=== PATIENT | male | born 1975 | race Caucasian/White ===

== ENCOUNTER → 2019-07-19 20:02 | Outpatient (CLI) | payer OTHER, SELFPAY ==
[2019-05-22 13:32] VITALS: BMI 44.1
== END ==
LOC: SL 20:02
PROVIDERS: Family Provider Internal Medicine; PCP Internal Medicine; Referring Provider Internal Medicine; Visit Provider Internal Medicine
DX: G47.10 Hypersomnia, unspecified (principal)
CPT/HCPCS: 95810

== ENCOUNTER → 2019-09-23 12:40 | Outpatient (CLI) | payer OTHER, SELFPAY ==
[2019-08-02 13:06] VITALS: BMI 45.6
[2019-09-23 13:35] LABS: T4 Free Direct 0.92 ng/dL (0.76-1.46); Thyroid Stim Hormone (TSH) 1.69 uIU/mL (0.358-3.74)
== END ==
PROVIDERS: Family Provider Internal Medicine; PCP Internal Medicine; Referring Provider Internal Medicine; Visit Provider Internal Medicine
DX: Z13.29 Encounter for screening for other suspected endocrine disorder (principal)
CPT/HCPCS: 36415; 84439; 84443

== ENCOUNTER → 2019-10-22 12:13 | Outpatient (CLI) | payer OTHER, SELFPAY ==
[2019-09-24 14:32] VITALS: BMI 32.3
--- NOTE | 2019-10-22 12:18 | RAD_ITS ---
STUDY: X-RAY - LEFT KNEE REASON FOR EXAM: Male, 44 years old. Pain TECHNIQUE: 2 view(s) of the knee. COMPARISON: None. FINDINGS: There is no evidence of fracture or dislocation. Moderate tricompartmental osteoarthritic degenerative changes are present, greatest in the lateral compartment. A dense effusion is present. There are no radiodense foreign bodies. RAD/Knee 1 or 2 Views IMPRESSION: No fracture or dislocation. Moderate tricompartmental osteoarthritic degenerative changes, greatest in the lateral compartment. Dense effusion, possibly proteinaceous or hemorrhagic. Correlate clinically. Electronically Signed: Wood Blanton, at 17:04 EST Tel , Service support ,
--- NOTE | 2019-10-22 12:20 | RAD_ITS ---
STUDY: X-RAY - LEFT KNEE REASON FOR EXAM: Male, 44 years old. Pain TECHNIQUE: 2 view(s) of the knee. COMPARISON: None. FINDINGS: There is no evidence of fracture or dislocation. Moderate to prominent tricompartmental osteoarthritic degenerative changes are present, greatest in the lateral compartment. There are no radiodense foreign bodies. RAD/Knee 1 or 2 Views IMPRESSION: No fracture or dislocation. Moderate to prominent tricompartmental osteoarthritic degenerative changes, greatest in the lateral compartment. Electronically Signed: Wood Blanton, at 17:02 EST Tel , Service support ,
== END ==
LOC: RAD 12:15
PROVIDERS: Family Provider Internal Medicine; PCP Internal Medicine; Referring Provider Internal Medicine; Visit Provider Internal Medicine
DX: I10 Essential (primary) hypertension (principal); R00.0 Tachycardia, unspecified; M17.12 Unilateral primary osteoarthritis, left knee
CPT/HCPCS: 73560; 93005

== ENCOUNTER → 2019-12-30 13:00 | Outpatient (CLI) | payer OTHER, SELFPAY ==
[2019-11-22 15:01] VITALS: BMI 32.3
[2019-12-30 13:50] LABS: Absolute Lymphocyte Count 1.99 X10^3/uL (0.83-4.51); Absolute Neutrophil Count 4.8 X10^3/uL (2.0-7.7); Basophil# 0.03 X10^3/uL; Basophil% 0.4 % (0-1); Eosinophil# 0.02 X10^3/uL; Eosinophils% 0.3 % (0-5); Hematocrit 44.2 % (40-54); Hemoglobin 14.5 g/dL (13.0-16.5); Lymphocyte # 1.99 X10^3/ul (4.0); Lymphocyte % 27.4 % (19-41); Mean Corp Hgb Conc 32.8 g/dL (32-36); Mean Corpuscular Hgb 27.8 pg (27.0-32.0); Mean Corpuscular Volume 84.8 fL (80-94); Mean Platelet Vol. 11.4 fl (6.2-12.0); Monocyte# 0.41 X10^3/uL; Monocyte% 5.6 % (0-10); NRBC Flagged by Analyzer 0 % (0-5); Neutrophil # 4.78 X10^3/uL (2.7-7.7); Neutrophil % 65.9 % (47-70); Platelet Count 184 K/mm3 (150-450); RBC Distribution Width CV 12.8 % (11.6-14.6); RBC Distribution Width SD 38.9 fl (35.1-43.9); Red Blood Count 5.21 M/mm3 (4.6-6.2); White Blood Count 7.3 K/mm3 (4.4-11.0)
[2019-12-30 14:07] LABS: ALB/GLOB Ratio 0.8 RATIO (0.9-2.4); AST(SGOT) 25 U/L (15-37); Alanine Aminotransfer ALT/SGPT 46 U/L (16-61); Albumin, Serum 3.4 g/dL (3.2-5.0); Alkaline Phosphatase 74 U/L (45-117); Anion Gap 2 (5-15); BUN 16 mg/dL (7-18); Calcium,Total 9.6 mg/dL (8.5-10.1); Chloride 102 mmol/L (98-107); Cholesterol 161 mg/dL (200); Creatinine, Serum 0.94 mg/dL (0.70-1.30); EST Glomerular Filtration Rate 92 mL/min (>60); Est Glom Filt Rate - Afr Amer 111 mL/min (>60); Globulin 4.3 g/dL (2.2-4.2); Glucose 94 mg/dL (74-106); High Density Lipoprotein 43 mg/dL; Protein, Total 7.7 g/dL (6.4-8.2); Sodium Level 138 mmol/L (136-145); Triglycerides 136 mg/dL; Very Low Density Lipoprotein 27 mg/dL (5-40)
== END ==
PROVIDERS: PCP Internal Medicine; Referring Provider Internal Medicine; Visit Provider Internal Medicine
DX: I10 Essential (primary) hypertension (principal); G47.30 Sleep apnea, unspecified
CPT/HCPCS: 36415; 80053; 80061; 85025

== ENCOUNTER → 2020-08-21 17:27 | Outpatient (CLI) | payer OTHER, SELFPAY ==
[2020-08-21 09:21] VITALS: BMI 49.8
== END ==
PROVIDERS: PCP Internal Medicine; Referring Provider Nurse Practitioner Family; Visit Provider Nurse Practitioner Family
DX: R05 Cough (principal)
CPT/HCPCS: 87635; U0003

== ENCOUNTER → 2021-09-24 15:38 | Outpatient (CLI) | payer BC, SELFPAY ==
[2021-09-24 16:43] LABS: Hematocrit 44.8 % (40-54); Hemoglobin 14.4 g/dL (13.0-16.5); Mean Corp Hgb Conc 32.1 g/dL (32-36); Mean Corpuscular Hgb 27.9 pg (27.0-32.0); Mean Corpuscular Volume 86.7 fL (80-94); Mean Platelet Vol. 11.7 fl (6.2-12.0); Platelet Count 161 K/mm3 (150-450); RBC Distribution Width CV 13.4 % (11.6-14.6); RBC Distribution Width SD 42.1 fl (35.1-43.9); Red Blood Count 5.17 M/mm3 (4.6-6.2); White Blood Count 7.7 K/mm3 (4.4-11.0)
[2021-09-24 17:07] LABS: ALB/GLOB Ratio 0.6 RATIO (0.9-2.4); AST(SGOT) 45 U/L (15-37); Alanine Aminotransfer ALT/SGPT 54 U/L (16-61); Albumin, Serum 3.2 g/dL (3.2-5.0); Alkaline Phosphatase 124 U/L (45-117); Anion Gap 3 (5-15); BUN 9 mg/dL (7-18); BUN/Creat Ratio 9.6 RATIO (10-20); Calcium,Total 9.6 mg/dL (8.5-10.1); Chloride 100 mmol/L (98-107); Cholesterol 165 mg/dL (200); Creatinine, Serum 0.93 mg/dL (0.70-1.30); EST Glomerular Filtration Rate 93 mL/min (>60); Est Glom Filt Rate - Afr Amer 112 mL/min (>60); Globulin 5.1 g/dL (2.2-4.2); Glucose 129 mg/dL (74-106); High Density Lipoprotein 37 mg/dL; Potassium 4.4 mmol/L (3.5-5.1); Protein, Total 8.3 g/dL (6.4-8.2); Sodium Level 137 mmol/L (136-145); Thyroid Stim Hormone (TSH) 2.42 uIU/mL (0.358-3.74); Triglycerides 136 mg/dL; Very Low Density Lipoprotein 27 mg/dL (5-40)
== END ==
LOC: BIMLAB 15:39
PROVIDERS: PCP Internal Medicine; Referring Provider Nurse Practitioner Family; Visit Provider Nurse Practitioner Family
DX: I10 Essential (primary) hypertension (principal); E78.00 Pure hypercholesterolemia, unspecified
CPT/HCPCS: 36415; 80053; 80061; 84443; 85027

== ENCOUNTER → 2022-09-15 | Outpatient (CLI) | payer BC, SELFPAY ==
[2022-09-15 12:35] LABS: Absolute Lymphocyte Count 1.35 X10^3/uL (0.83-4.51); Absolute Neutrophil Count 3.4 X10^3/uL (2.0-7.7); Basophil# 0.03 X10^3/uL; Basophil% 0.6 % (0-1); Eosinophil# 0.04 X10^3/uL; Eosinophils% 0.8 % (0-5); Hematocrit 40.4 % (40-54); Hemoglobin 13.7 g/dL (13.0-16.5); Lymphocyte # 1.35 X10^3/ul (0.83-4.51); Lymphocyte % 26.5 % (19-41); Mean Corp Hgb Conc 33.9 g/dL (32-36); Mean Corpuscular Hgb 29.5 pg (27.0-32.0); Mean Corpuscular Volume 86.9 fL (80-94); Mean Platelet Vol. 12.3 fl (6.2-12.0); Monocyte# 0.27 X10^3/uL; Monocyte% 5.3 % (0-10); NRBC Flagged by Analyzer 0 % (0-5); Neutrophil # 3.39 X10^3/uL (2.7-7.7); Neutrophil % 66.4 % (47-70); POSITIVE COUNT YES; Platelet Count 95 K/mm3 (150-450); RBC Distribution Width CV 13.9 % (11.6-14.6); Red Blood Count 4.65 M/mm3 (4.6-6.2); White Blood Count 5.1 K/mm3 (4.4-11.0)
[2022-09-15 12:42] LABS: Differential Indicated SCAN CRITERIA MET
[2022-09-15 13:04] LABS: Platelet Estimate SLT DEC (ADEQ)
[2022-09-15 13:10] LABS: ALB/GLOB Ratio 0.8 RATIO (0.9-2.4); AST(SGOT) 30 U/L (15-37); Alanine Aminotransfer ALT/SGPT 31 U/L (16-61); Albumin, Serum 3.4 g/dL (3.2-5.0); Alkaline Phosphatase 86 U/L (45-117); Anion Gap 6 (5-15); BUN 9 mg/dL (7-18); BUN/Creat Ratio 11.2 RATIO (10-20); Calcium,Total 9.5 mg/dL (8.5-10.1); Chloride 105 mmol/L (98-107); Cholesterol 140 mg/dL (200); EST Glomerular Filtration Rate 110 mL/min (>60); Est Glom Filt Rate - Afr Amer 133 mL/min (>60); Globulin 4.2 g/dL (2.2-4.2); Glucose 109 mg/dL (74-106); High Density Lipoprotein 44 mg/dL; Potassium 3.9 mmol/L (3.5-5.1); Protein, Total 7.6 g/dL (6.4-8.2); Sodium Level 141 mmol/L (136-145); Thyroid Stim Hormone (TSH) 1.81 uIU/mL (0.358-3.74); Triglycerides 76 mg/dL; Very Low Density Lipoprotein 15 mg/dL (5-40)
[2022-09-15 13:20] LABS: Microalbumin,Random Urine 9.2 mg/L (NO RANGE EST.); Microalbumin:Creatinine Ratio 4.5 mg/g CRE (<30 mg/g CRE)
== END | disposition home or self-care (01) ==
LOC: BIMLAB 10:29
PROVIDERS: PCP Internal Medicine; Referring Provider Nurse Practitioner Family; Visit Provider Nurse Practitioner Family
DX: Z00.00 Encounter for general adult medical examination without abnormal findings (principal); E11.9 Type 2 diabetes mellitus without complications; I10 Essential (primary) hypertension
CPT/HCPCS: 36415; 80053; 80061; 82043; 82570; 84443; 85025

== ENCOUNTER → 2023-03-21 | Outpatient (CLI) | payer OTHER, SELFPAY ==
[2023-03-21 15:44] LABS: Hematocrit 45.9 % (40-54); Hemoglobin 15.1 g/dL (13.0-16.5); Mean Corp Hgb Conc 32.9 g/dL (32-36); Mean Corpuscular Hgb 28.9 pg (27.0-32.0); Mean Corpuscular Volume 87.8 fL (80-94); Mean Platelet Vol. 12.5 fl (6.2-12.0); Platelet Count 143 K/mm3 (150-450); RBC Distribution Width CV 13.4 % (11.6-14.6); RBC Distribution Width SD 42.9 fl (35.1-43.9); Red Blood Count 5.23 M/mm3 (4.6-6.2); White Blood Count 7.6 K/mm3 (4.4-11.0)
== END | disposition home or self-care (01) ==
PROVIDERS: PCP Internal Medicine; Visit Provider Nurse Practitioner Family
DX: D69.6 Thrombocytopenia, unspecified (principal)
CPT/HCPCS: 36415; 85027

== ENCOUNTER → 2023-12-29 | Outpatient (CLI) | payer OTHER, SELFPAY ==
[2023-12-29 09:42] LABS: Absolute Lymphocyte Count 1.79 X10^3/uL (0.83-4.51); Absolute Neutrophil Count 5.7 X10^3/uL (2.0-7.7); Basophil# 0.03 X10^3/uL; Basophil% 0.4 % (0-1); Eosinophil# 0.03 X10^3/uL; Eosinophils% 0.4 % (0-5); Hematocrit 47.3 % (40-54); Hemoglobin 15.6 g/dL (13.0-16.5); Lymphocyte # 1.79 X10^3/ul (0.83-4.51); Lymphocyte % 22.5 % (19-41); Mean Corpuscular Hgb 28.4 pg (27.0-32.0); Mean Corpuscular Volume 86.2 fL (80-94); Mean Platelet Vol. 11.8 fl (6.2-12.0); Monocyte# 0.42 X10^3/uL; Monocyte% 5.3 % (0-10); NRBC Flagged by Analyzer 0 % (0-5); Neutrophil # 5.66 X10^3/uL (2.7-7.7); Neutrophil % 70.9 % (47-70); Platelet Count 149 K/mm3 (150-450); RBC Distribution Width CV 13.4 % (11.6-14.6); RBC Distribution Width SD 42.3 fl (35.1-43.9); Red Blood Count 5.49 M/mm3 (4.6-6.2)
[2023-12-29 10:17] LABS: ALB/GLOB Ratio 0.7 RATIO (0.9-2.4); AST(SGOT) 31 U/L (15-37); Alanine Aminotransfer ALT/SGPT 51 U/L (16-61); Albumin, Serum 3.5 g/dL (3.2-5.0); Alkaline Phosphatase 101 U/L (45-117); Anion Gap 5 (5-15); BUN 13 mg/dL (7-18); BUN/Creat Ratio 14.4 RATIO (10-20); Calcium,Total 9.5 mg/dL (8.5-10.1); Chloride 105 mmol/L (98-107); Cholesterol 177 mg/dL (200); EST Glomerular Filtration Rate 96 mL/min (>60); Est Glom Filt Rate - Afr Amer 116 mL/min (>60); Globulin 4.7 g/dL (2.2-4.2); Glucose 211 mg/dL (74-106); High Density Lipoprotein 42 mg/dL; Potassium 4.1 mmol/L (3.5-5.1); Protein, Total 8.2 g/dL (6.4-8.2); Sodium Level 137 mmol/L (136-145); Triglycerides 118 mg/dL; Very Low Density Lipoprotein 24 mg/dL (5-40)
== END | disposition home or self-care (01) ==
PROVIDERS: PCP Internal Medicine; Visit Provider Internal Medicine
DX: I10 Essential (primary) hypertension (principal)
CPT/HCPCS: 36415; 80053; 80061; 85025

== ENCOUNTER → 2024-06-27 | Outpatient (CLI) | payer OTHER, SELFPAY ==
[2024-06-27 15:26] LABS: Microalbumin,Random Urine 14.7 mg/L (NO RANGE EST.); Microalbumin:Creatinine Ratio 6.6 mg/g CRE (<30 mg/g CRE)
[2024-06-27 16:10] LABS: Anion Gap 4 (5-15); BUN 14 mg/dL (7-18); BUN/Creat Ratio 14.7 RATIO (10-20); Chloride 102 mmol/L (98-107); Creatinine, Serum 0.96 mg/dL (0.70-1.30); EST Glomerular Filtration Rate 89 mL/min (>60); Est Glom Filt Rate - Afr Amer 108 mL/min (>60); Glucose 102 mg/dL (74-106); Potassium 4.9 mmol/L (3.5-5.1); Sodium Level 137 mmol/L (136-145)
== END | disposition home or self-care (01) ==
LOC: BIMLAB 13:09
PROVIDERS: PCP Internal Medicine; Referring Provider Internal Medicine; Visit Provider Internal Medicine
DX: E11.9 Type 2 diabetes mellitus without complications (principal)
CPT/HCPCS: 36415; 80048; 82043; 82570

== ENCOUNTER 2024-12-05 08:02 | Day surgery (SDC) | payer OTHER, SELFPAY ==
[2024-12-05] VITALS (7 sets, daily range): BP systolic 105–140; BP diastolic 62–80; PULSE 70–77; RESP 16–18; TEMP 36.3–36.6; O2SAT 94–96; BMI 44.7
--- NOTE | 2024-12-05 08:34 | PRE.ANES_ITS ---
ASA Classification* ASA Classification ASA Classification: 3 Assessment & Plan Anesthesia* Anesthesia Assessment Anesthesia Assessment: Discussed sedation and/or anesthesia options, risks, benefits, and alternatives with patient/parents/legal guardian/POA. Questions invited. The patient/parents/legal guardian/POA seems to understand and agrees to proceed with anesthesia plan. Reviewed the physical assessment, medical history, allergy history and patient home medications list prior to surgery/procedure/anesthetic and documented any changes. Performed airway and anesthesia risk assessments. Anesthesia Type Anesthesia Type: MAC History Source History Obtained from:: Patient and Chart Anesthesia Focused Assessment* Temperature: 97.8 F Pulse Rate: 76 Blood Pressure: 140/62 Respiratory Rate: 18 Pulse Ox: 96 Oxygen Delivery Method: Room Air Airway Assessment Mouth opens: 2 cm Mallampati Score: III Teeth Condition: Caps/Crowns (Patient has a crown top right molar. It is tight.) Neck Range of motion (ROM): Limited ROM (Somewhat decreased extension) Focused Labs Anesthesia Preop lab: CBC WBC 8.0 K/mm3 (4.4-11.0) 12/29/23 09:17 12/29/23 RBC 5.49 M/mm3 (4.6-6.2) 12/29/23 09:17 12/29/23 Hgb 15.6 g/dL (13.0-16.5) 12/29/23 09:17 12/29/23 Hct 47.3 % (40-54) 12/29/23 09:17 12/29/23 Plt Count 149 K/mm3 (150-450) L 12/29/23 09:17 12/29/23 CHEMISTRY Potassium 4.9 mmol/L (3.5-5.1) 06/27/24 13:09 06/27/24 Sodium 137 mmol/L (136-145) 06/27/24 13:09 06/27/24 BUN 14 mg/dL (7-18) 06/27/24 13:09 06/27/24 Creatinine 0.96 mg/dL (0.70-1.30) 06/27/24 13:09 06/27/24 Glucose 102 mg/dL (74-106) 06/27/24 13:09 06/27/24 TSH 1.81 uIU/mL (0.358-3.74) 09/15/22 10:30 COAG Pre-Assessment Diagnosis/Proposed Procedure Planned Operative Procedure(s): COLONOSCOPY-OA Anesthesia History 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 When Was Last Pacemaker Check QUESTION #4 FULL TEXT: You/Your Family Experience fever (hyperthermia) with Anesthesia Last Oral Intake Last Oral intake: Last Oral Intake NPO since 05:45 12/05/24 08:26 Meds taken in AM with sips of No 12/05/24 08:26 water? Meds patient instructed to take am of surgery Any additional information?: Yes NPO since: 05:45 (Patient finished prep at 5:25 AM) PONV PONV - casting machine set up operator: PONV - casting machine set up operator Female No 12/03/24 14:42 HX of Motion Sickness No 12/03/24 14:42 HX of N/V After Surgery No 12/03/24 14:42 Non-Smoker Yes 12/03/24 14:42 Duration of Surgery greater No 12/03/24 14:42 than 60 minutes Number of Risk Factors 1 12/03/24 14:42 PONV Score Low Risk 12/03/24 14:42 Height & Weight Height & Weight: Anesthesia: Height & Weight Height 5 ft 11 in 12/05/24 08:26 Weight: 145.6 kg 12/05/24 08:26 Body Mass Index (BMI) 44.7 12/05/24 08:26 Respiratory Assessment Respiratory Assessment - casting machine set up operator: Respiratory Tract Infection Hx - casting machine set up operator Hx Respiratory Tract Infection No 12/03/24 14:42 Any additional information?: Yes Hx Respiratory Tract Infection: Yes (Patient has not had the flu this past couple weeks. Better for the past 3d) STOP Sleep Apnea STOP Sleep Apnea - casting machine set up operator: STOP Sleep Apnea - casting machine set up operator Hx Hypertension Yes: CONTROLLED ON MED 12/03/24 14:42 Hx Sleep Apnea No 12/03/24 14:42 CPAP BIPAP Do you snore loudly (louder Yes 12/03/24 14:42 than talking or can be heard Do you often feel tired/ No 12/03/24 14:42 fatigued/ sleepy during daytime? Has anyone observed you stop No 12/03/24 14:42 breathing during sleep? STOP Results Positive 12/03/24 14:42 QUESTION #5 FULL TEXT : Do you snore loudly (louder than talking or can be heard through closed doors)? Tobacco Use History Tobacco Use History - casting machine set up operator: Tobacco Use History - casting machine set up operator Tobacco Use Smoking Status Never smoker 12/03/24 14:42 Hx Tobacco Use No 12/03/24 14:42 Years Smoking Packs Smoked per Day Smoking Cessation Date was within the last 15 years Hx Smoking Cessation Date Hx Smoking Cessation Counseling Hematologic Medial History Hematologic Hx - casting machine set up operator: Hematologic Medical Hx - digital marketing analyst Hx of Blood Transfusion No 12/03/24 14:42 Hx of Transfusion in last 3 No 12/03/24 14:42 Months Date of Last Transfusion (if within last 3 months) Ever experience any problems No 12/03/24 14:42 with transfusion(s)? Specify any problems Hx of Preganancy in last 3 N/A 12/03/24 14:42 Months Nurse Filling Out Transfusion VCHRISTIN 12/03/24 14:42 & Questions: Date: 12/03/24 12/03/24 14:42 Time: 14:43 12/03/24 14:42 Patient unable to answer at this time (ie. confused, unrespo /Reproduction History /Reproductive History - casting machine set up operator: /Reproductive Hx- casting machine set up operator Hx Now Gestational Age (in weeks): EDC: Hx Hx Para Hx Section SAB [facility] Medical History Wears glasses Gastric reflux Non-smoker History of stress test Health care maintenance Anxiety and depression Low back pain Grief reaction with prolonged bereavement Colon cancer screening Low platelet count Onychomycosis Type 2 diabetes mellitus HTN (hypertension) Encounter for preventative adult health care examination GERD (gastroesophageal reflux disease) IBS (irritable bowel syndrome) High cholesterol High blood pressure Hearing problem Frequent headaches Bone fracture Back problem Arthritis Seasonal allergies Home Medications ?Medication ?Instructions ?Recorded ?Last Taken ?Type esomeprazole magnesium 40 mg 40 mg PO DAILY #90 caps 0 03/21/23 Unknown Rx capsule,delayed release losartan 50 mg-hydrochlorothiazide 1 tab PO DAILY #90 tabs 01/04/24 Unknown Rx 12.5 mg tablet buspirone 7.5 mg tablet 7.5 mg PO BID #60 tabs 10/21 Unknown Rx meloxicam 15 mg tablet 15 mg PO DAILY PRN pain #90 tabs 11/01/24 Unknown Rx tirzepatide 5 mg/0.5 mL 5 mg subcut QWEEK 12/03/24 0 11/24/24 History subcutaneous pen injector (Mounjaro) Allergy/AdvReac Type Severity Reaction Status Date / Time bacitracin (From Neosporin Allergy Mild Unknown Verified 12/05/24 08:25 ([id number])) neomycin (From Neosporin Allergy Mild Unknown Verified 12/05/24 08:25 ([id number])) polymyxin B (From Neosporin Allergy Mild Unknown Verified 12/05/24 08:25 ([id number])) Family History Grandfather Alcohol abuse Hypertension Grandmother Diabetes Hypertension Father Skin cancer CVA (cerebral vascular accident) Hypertension Colon polyps Mother Hypertension Grandfather Alcohol abuse High cholesterol Surgical History Hx of hand surgery Social History household members: other details: current occupational status: employed Smoking Status: Never smoker alcohol intake: current alcohol intake frequency: holidays/special occasions only substance use type: does not use what type of physical activity do you participate in: none Review of Systems (Anesthesia) ROS Narrative System reviewed and no additional complaints, except as documented.
--- NOTE | 2024-12-05 08:40 | HP.PCM_ITS ---
[facility] - General General Date of Admission: 12/05/24 Date of Service: 12/05/24 Chief Complaint: Screening colonoscopy HPI Narrative PETRA MCDONOUGH, is a 49 M who presents today for screening colonoscopy. He has never had a colonoscopy in the past. He is not have any abdominal pain, cramping, chest pain or shortness of breath. He does have type 2 diabetes which is controlled with medications. [facility] Medical History Wears glasses Gastric reflux Non-smoker History of stress test Health care maintenance Anxiety and depression Low back pain Grief reaction with prolonged bereavement Colon cancer screening Low platelet count Onychomycosis Type 2 diabetes mellitus HTN (hypertension) Encounter for preventative adult health care examination GERD (gastroesophageal reflux disease) IBS (irritable bowel syndrome) High cholesterol High blood pressure Hearing problem Frequent headaches Bone fracture Back problem Arthritis Seasonal allergies Home Medications ?Medication ?Instructions ?Recorded ?Last Taken ?Type esomeprazole magnesium 40 mg 40 mg PO DAILY #90 caps 0 03/21/23 Unknown Rx capsule,delayed release losartan 50 mg-hydrochlorothiazide 1 tab PO DAILY #90 tabs 01/04/24 Unknown Rx 12.5 mg tablet buspirone 7.5 mg tablet 7.5 mg PO BID #60 tabs 10/21 Unknown Rx meloxicam 15 mg tablet 15 mg PO DAILY PRN pain #90 tabs 11/01/24 Unknown Rx tirzepatide 5 mg/0.5 mL 5 mg subcut QWEEK 12/03/24 0 11/24/24 History subcutaneous pen injector (Mounjaro) Allergy/AdvReac Type Severity Reaction Status Date / Time bacitracin (From Neosporin Allergy Mild Unknown Verified 12/05/24 08:25 ([id number])) neomycin (From Neosporin Allergy Mild Unknown Verified 12/05/24 08:25 ([id number])) polymyxin B (From Neosporin Allergy Mild Unknown Verified 12/05/24 08:25 ([id number])) Family History Grandfather Alcohol abuse Hypertension Grandmother Diabetes Hypertension Father Skin cancer CVA (cerebral vascular accident) Hypertension Colon polyps Mother Hypertension Grandfather Alcohol abuse High cholesterol Surgical History Hx of hand surgery Social History household members: other details: current occupational status: employed Smoking Status: Never smoker alcohol intake: current alcohol intake frequency: holidays/special occasions only substance use type: does not use what type of physical activity do you participate in: none ROS Constitutional Constitutional: Denies fatigue, fever(s), poor appetite, weight gain or weight loss Gastrointestinal Gastrointestinal: Denies belching, bloating, change in bowel habits, change in stool character, chewing difficulty, coffee ground emesis, constipation, cramping, diarrhea, dyspepsia, dysphagia, early satiety, excessive flatus, fecal incontinence, heartburn, hematemesis, hematochezia, hemorrhoids, loose stools, melena, nausea, odynophagia, rectal bleeding, tenesmus, vomiting or weight changes Vital Signs Vital Signs Vital Signs: 12/05/24 08:26 12/05/24 08:26 Temperature 97.8 F Temperature Source Temporal Pulse Rate 76 Respiratory Rate 18 Respiratory Pattern Normal Blood Pressure 140/62 H Blood Pressure Mean 88 Blood Pressure Source Monitor Blood Pressure Position Sitting Blood Pressure Location Left Arm Pulse Ox 96 Oxygen Delivery Method Room Air Weight Weight: 320 lb 15.889 oz Body Mass Index (BMI) 44.7 Physical Exam Const alert, oriented x3, no apparent distress and healthy appearing General Appearance: cooperative GI normal to inspection, nondistended, normoactive bowel sounds, soft to palpation, non-tender and non-distended Percussion: normal to percussion Rectal Exam: deferred Assessment & Plan Assessment/Plan (1) Colon cancer screening: PLAN: He will undergo screening colonoscopy. He was explained alternatives, risk, benefits include not withstanding bleeding, infection, sepsis, perforation, need for emergency or urgent . He will have an ASA of 3.
--- NOTE | 2024-12-05 09:15 | PCM.POST.ANE ---
Anesthesia: Postop Eval I Current Vital Signs Temperature: 97.4 F Pulse Rate: 77 Blood Pressure: 105/76 Respiratory Rate: 16 Pulse Ox: 96 Oxygen Delivery Method: Room Air Assessment Airway patent: Yes Spontaneous unlabored respirations: Yes Mental status: Awake and Calm nausea: No Vomiting: No Anesthesia Complication: No Fluid Hydration Crystalloid volume administer (ml): 40 Total IV fluid infused: 40 Progress Note Anesthesia document: Postop Eval 1 completed: Yes
--- NOTE | 2024-12-05 09:16 | OP.COLON_ITS ---
Patient Name: Wood Velazquez Procedure Date: 12/05/2024 8:42 AM Date of : 1975 Age: 49 Procedure: Colonoscopy Indications: Screening for colorectal malignant neoplasm Providers: Singh Webster DO Medicines: Monitored Anesthesia Care Patient Profile: This is a 49 year old male. Refer to note in patient chart for documentation of history and physical. Last Colonoscopy: none. The patient's first colonoscopy is today. Complications: No immediate complications. Procedure: Pre-Anesthesia Assessment: - Prior to the procedure, a History and Physical was performed, and patient medications and allergies were reviewed. The patient is competent. The risks and benefits of the procedure and the sedation options and risks were discussed with the patient. All questions were answered and informed consent was obtained. Patient identification and proposed procedure were verified by the physician in the pre-procedure area. Mental Status Examination: alert and oriented. Airway Examination: normal oropharyngeal airway and neck mobility. Respiratory Examination: clear to auscultation. CV Examination: normal. Prophylactic Antibiotics: The patient does not require prophylactic antibiotics. Prior Anticoagulants: The patient has taken no anticoagulant or antiplatelet agents except for NSAID medication. ASA Grade Assessment: II - A patient with mild systemic disease. After reviewing the risks and benefits, the patient was deemed in satisfactory condition to undergo the procedure. The anesthesia plan was to use monitored anesthesia care (MAC). Immediately prior to administration of medications, the patient was re-assessed for adequacy to receive sedatives. The heart rate, respiratory rate, oxygen saturations, blood pressure, adequacy of pulmonary ventilation, and response to care were monitored throughout the procedure. The physical status of the patient was re-assessed after the procedure. After I obtained informed consent, the scope was passed under direct vision. Throughout the procedure, the patient's blood pressure, pulse, and oxygen saturations were monitored continuously. The Colonoscope was introduced through the anus and advanced to the cecum, identified by the appendiceal orifice, ileocecal valve and palpation. The colonoscopy was performed without difficulty. The patient tolerated the procedure well. The quality of the bowel preparation was adequate. The ileocecal valve, appendiceal orifice, and rectum were photographed. Scope In: 8:53:47 AM Scope Withdrawal Time 0 hours 8 minutes 40 seconds Scope Out: 9:04:08 AM Total Procedure Duration Time 0 hours 10 minutes 21 seconds Findings: The perianal and digital rectal examinations were normal. A few small and large-mouthed diverticula were found in the recto-sigmoid colon and sigmoid colon. The exam was otherwise without abnormality on direct and retroflexion views. Impression: - Diverticulosis in the recto-sigmoid colon and in the sigmoid colon. - The examination was otherwise normal on direct and retroflexion views. - No specimens collected. Recommendation: - Discharge patient to home. - Resume previous diet. - Continue present medications. - Repeat colonoscopy in 10 years for screening purposes. Procedure Code(s): --- Professional --- G0121, Colorectal cancer screening; colonoscopy on individual not meeting criteria for high risk CPT copyright 2021 [employer]. All rights reserved. The codes documented in this report are preliminary and upon cloth bleaching range back tender review may be revised to meet current compliance requirements. Singh Webster DO 12/05/2024 9:16:01 AM This report has been signed electronically. Number of Addenda: 0 Note Initiated On: 12/05/2024 8:42 AM
--- NOTE | 2024-12-05 09:16 | OP.CCLET_ITS ---
12/05/2024 Becky Wright MD [address] [place] [address] [place] [address] Re : Colonoscopy procedure for Wood Velazquez Dear Dr. Wright This procedure was performed on November. My impressions and recommendations are as follows: Impressions : - Diverticulosis in the recto-sigmoid colon and in the sigmoid colon. - The examination was otherwise normal on direct and retroflexion views. - No specimens collected. Recommendations : - Discharge patient to home. - Resume previous diet. - Continue present medications. - Repeat colonoscopy in 10 years for screening purposes. My findings are described in the full procedure note, which is enclosed. If I can be of further assistance, please feel free to contact me at . Sincerely, Singh Friend, 12/05/2024 9:16:01 AM This report has been signed electronically.
--- NOTE | 2024-12-05 11:42 | PCM.POSTANE2 ---
Anesthesia Postop Eval I Sum Postop Eval Completion status Anesthesia document: Postop Eval 1 completed: Yes Anesthesia Postop Eval I Summary Anesthesia Postop Eval I Summary: Anesthesia Postop Eval I: Assessment Summary Airway patent Yes 12/05/24 09:16 [email or web address] Spontaneous unlabored Yes 12/05/24 09:16 [email or web address] respirations Mental status Awake,Calm 12/05/24 09:16 [email or web address] nausea No 12/05/24 09:16 [email or web address] Vomiting No 12/05/24 09:16 [email or web address] Anesthesia Postop Eval I: Fluid Summary Crystalloid volume administer 40 12/05/24 09:16 [email or web address] (ml) Colloids volume administered ( ml) Blood Product volume administered (ml) Total IV fluid infused 40 12/05/24 09:16 [email or web address] Anesthesia Postop Eval I: Summary Notes Anesthesia Complication No 12/05/24 09:16 [email or web address] Anesthesia Complication Comment: Post-operative progress note Anesthesia: Postop Eval II Evaluation Mental status: Awake and Calm Pain Level: 0 nausea: No Vomiting: No Complications Anesthesia Complication: No
== END 2024-12-05 09:49 | disposition home or self-care (01) ==
LOC: EN 08:05 → AC 08:06
PROVIDERS: PCP Internal Medicine; Referring Provider Internal Medicine; Visit Provider Internal Medicine Gastroenterology
PROC: 0DJD8ZZ Inspection of Lower Intestinal Tract, Via Natural or Artificial Opening Endoscopic (ICD-10-PCS; CPT 45378; principal; 2024-12-05 09:10)
DX: Z12.11 Encounter for screening for malignant neoplasm of colon (principal); E11.9 Type 2 diabetes mellitus without complications; K57.30 Diverticulosis of large intestine without perforation or abscess without bleeding; I10 Essential (primary) hypertension; Z79.85 Long-term (current) use of injectable non-insulin antidiabetic drugs; Z79.899 Other long term (current) drug therapy; Z83.719 Family history of colon polyps, unspecified
CPT/HCPCS: 45378; A4216; J2405

== ENCOUNTER → 2025-03-21 | Outpatient (CLI) | payer OTHER, SELFPAY ==
[2025-03-21 12:29] LABS: Absolute Lymphocyte Count 1.87 X10^3/uL (0.83-4.51); Absolute Neutrophil Count 4.3 X10^3/uL (2.0-7.7); Basophil# 0.04 X10^3/uL; Basophil% 0.6 % (0-1); Eosinophil# 0.03 X10^3/uL; Eosinophils% 0.5 % (0-5); Hematocrit 44.2 % (40-54); Hemoglobin 14.9 g/dL (13.0-16.5); Lymphocyte # 1.87 X10^3/ul (0.83-4.51); Lymphocyte % 28.2 % (19-41); Mean Corp Hgb Conc 33.7 g/dL (32-36); Mean Corpuscular Hgb 29.1 pg (27.0-32.0); Mean Corpuscular Volume 86.3 fL (80-94); Mean Platelet Vol. 12.6 fl (6.2-12.0); NRBC Flagged by Analyzer 0 % (0-5); Neutrophil # 4.26 X10^3/uL (2.7-7.7); Neutrophil % 64.4 % (47-70); Platelet Count 131 K/mm3 (150-450); RBC Distribution Width SD 40.3 fl (35.1-43.9); Red Blood Count 5.12 M/mm3 (4.6-6.2); White Blood Count 6.6 K/mm3 (4.4-11.0)
[2025-03-21 12:57] LABS: ALB/GLOB Ratio 1.1 RATIO (0.9-2.4); AST(SGOT) 27 U/L (<=37); Alanine Aminotransfer ALT/SGPT 33 U/L (<=46); Albumin, Serum 3.9 g/dL (3.5-5.0); Alkaline Phosphatase 83 U/L (40-129); Anion Gap 9 (5-15); BUN 11 mg/dL (4-19); BUN/Creat Ratio 11.7 RATIO (10-20); Calcium,Total 9.6 mg/dL (7.6-11.0); Carbon Dioxide 27.4 mmol/L (21.0-32.0); Chloride 100 mmol/L (98-108); Cholesterol 156 mg/dL (<=200); EST Glomerular Filtration Rate 105 (>60); Globulin 3.5 g/dL (2.2-4.2); Glucose 144 mg/dL (70-99); High Density Lipoprotein 48 mg/dL; Low Density Lipoprotein Calc. 90 mg/dL; PSA,Total - Annual Screen 0.16 ng/mL (0.02-4.00); Potassium 4.2 mmol/L (3.3-5.1); Protein, Total 7.4 g/dL (5.9-8.4); Sodium Level 137 mmol/L (133-145); Total Bilirubin 0.37 mg/dL (0.00-1.30); Triglycerides 89 mg/dL; Very Low Density Lipoprotein 18 mg/dL (5-40); cholesterol:hdl ratio screen 3.24
== END | disposition home or self-care (01) ==
LOC: BIMLAB 08:52
PROVIDERS: PCP Internal Medicine; Referring Provider Internal Medicine; Visit Provider Internal Medicine
DX: E11.9 Type 2 diabetes mellitus without complications (principal); I10 Essential (primary) hypertension; Z12.5 Encounter for screening for malignant neoplasm of prostate
CPT/HCPCS: 36415; 80053; 80061; 84153; 85025; G0103

== ENCOUNTER → 2025-10-17 | Outpatient (CLI) | payer OTHER, SELFPAY ==
[2025-10-17 15:14] LABS: Hematocrit 44.8 % (40-54); Hemoglobin 15.0 g/dL (13.0-16.5); Immature Granulocytes Count 0.020 X10^3/uL (0.0-0.0); Mean Corp Hgb Conc 33.5 g/dL (32-36); Mean Corpuscular Volume 86.2 fL (80-94); Mean Platelet Vol. 12.8 fl (6.2-12.0); NRBC Flagged by Analyzer 0 % (0-5); Platelet Count 135 K/mm3 (150-450); RBC Distribution Width CV 13.0 % (11.6-14.6); RBC Distribution Width SD 40.5 fl (35.1-43.9); Red Blood Count 5.20 M/mm3 (4.6-6.2); White Blood Count 6.9 K/mm3 (4.4-11.0)
[2025-10-17 15:54] LABS: AST(SGOT) 32 U/L (<=37); Alanine Aminotransfer ALT/SGPT 41 U/L (<=46); Albumin, Serum 4.0 g/dL (3.5-5.0); Alkaline Phosphatase 89 U/L (40-129); Anion Gap 11 (5-15); BUN 10 mg/dL (4-19); BUN/Creat Ratio 10.4 RATIO (10-20); Calcium,Total 9.7 mg/dL (7.6-11.0); Carbon Dioxide 28.4 mmol/L (21.0-32.0); Chloride 102 mmol/L (98-108); Globulin 3.1 g/dL (2.2-4.2); Glucose 108 mg/dL (70-99); Potassium 4.3 mmol/L (3.3-5.1)
[2025-10-17 15:55] LABS: Vitamin B12 523 pg/mL (180-914); Vitamin D,25 Hydroxy 7.7 ng/mL (30-100)
== END | disposition home or self-care (01) ==
LOC: EPLAB 11:57
PROVIDERS: PCP Internal Medicine; Visit Provider Internal Medicine
DX: Z00.00 Encounter for general adult medical examination without abnormal findings (principal); F32.A Depression, unspecified; F41.9 Anxiety disorder, unspecified
CPT/HCPCS: 36415; 80053; 82306; 82607; 84439; 84443; 85025